=== PATIENT | female | born 1985 | race Caucasian/White ===

== ENCOUNTER 2020-02-22 15:02 | Inpatient (IN) | payer MEDICAID, SELFPAY ==
[2020-02-22 16:45] VITALS: BP 119/70; PULSE 97; RESP 16; TEMP 36.8; O2SAT 100; BMI 39.0; BMI 39.1
[2020-02-22] MEDS: Acetaminophen 325 MG Tablet 650 MG PO ×2 (18:57→22:34)
[2020-02-22 18:59] VITALS: BP 122/68; PULSE 89; RESP 17; TEMP 36.8; O2SAT 100
[2020-02-22] MEDS: Glycerin/Hypromellose/PEG400 15 ml Bottle 1 DRP EACH EYE ×2 (19:51→22:34)
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
[2020-02-22] MEDS: BACITRACIN 15 GM Tube 1 APPLIC TOPICAL (22:44)
[2020-02-23] MEDS: Glycerin/Hypromellose/PEG400 15 ml Bottle 1 DRP EACH EYE ×3 (04:52→17:21)
[2020-02-23] MEDS: Enoxaparin 40 MG/0.4 ML Syringe SC (04:52)
[2020-02-23 07:30] VITALS: BP 124/68; PULSE 88; RESP 18; TEMP 36.7; O2SAT 97
[2020-02-23 07:49] VITALS: O2SAT 98
[2020-02-23] MEDS: Acetaminophen 325 MG Tablet 650 MG PO ×4 (07:57→21:18)
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
--- NOTE | 2020-02-23 14:11 | REHABEVAL_ITS ---
Admission Information Primary Diagnosis:: Left lateral condyle femur fracture, right scapular fracture. Status Changes from Prescreening?: No changes Identified Actual Problem List:: Pain, ALteration in Cmfrt, Mobility Impaired, Self Care Deficit Potential Problem List:: DVT, Bleeding, Infection, UTI, Falls, Skin Integrity, Depression Risk of Complications DVT: LMWH, BETSY Hose, Sequential Compression Device Bleeding: Monitor Lab Values, Nursing to Teach Precautions for anti-coagulation therapy., Wound, if applicable, to be assessed every shift., Stroke patients assessed for lethargy or change in status. Infection: Clinical Staff to Monitor for S/S of infection:, S/S of infection include fever, redness, warmth, etc. Urinary Tract Infection: Monitor for frequency, burning, discomfort, or incontinence., Nursing will obtain urine sample for urinalysis and C&S when ordered. Aspiration: Clinical staff will monitor for coughing, drooling, congestion., Speech will evaluate swallowing and dsyphasia., Nursing will monitor patient swallowing during meals. Falls: Patient will be evaluated for Fall Precautions, Patient will be placed on Fall Precautions as indicated per protocol. Skin Breakdown: Nursing will assess skin daily using assessment tool., Nursing will place on Skin Breakdown Precautions as indicated. Pain: Clinical staff will assess patient's pain level per protocol., Medications will be given, if needed, and the pain level reassessed., Other methods: Massage, distraction, decrease stimulus, etc. used PRN. Plan of Care Patient requires physician specializing in physical medicine and rehab oversight to provide close medical supervision of rehab issues including: Pain Management, Sleep Problems, Bowel and Bladder, Medical and co-morbidity Management, DVT prophylaxis, Rehabilitation Leadership, Coordination of treatment team Patient needs Physical Therapy: For a minimum of 1 hour, At least 5 out of 7 days Patient needs Physical Therapy to improve:: Mobility, Mobility, Mobility, Strengthening, Transfers, Stretching, ROM, Endurance, Stairs, Gait, Balance Patient needs Occupational Therapy: For a minimum of 1 hour, At least 5 out of 7 days Patient needs Occupational Therapy to improve ADL's incl.: Eating, Grooming, Bathing, Dressing, Toileting, Toilet transfers, Community Reintegration, Higher functioning activities, Household tasks, Adaptive Equipment, Splinting, Other activities as determined Patient requires speech therapy: For a minimum of 1 hour, At least 5 out of 7 days Patient requires speech therapy for: Swallowing, Cognition, Language Skills, Compensatory Strategies Patient requires 24/ Rehabilitation Nursing for: Pain Issues, Identifying and preventing risk factors, Monitoring and reporting current medical conditions, Assisting with ambulation, transfer, and all ADL's, Teaching patients about disease process and medications, Family teaching, Providing safe environment, Bowel and Bladder Issues, Skin integrity, Medication Management Patient needs Oracle Data Warehouse Developer/ Case Management for: Discharge Planning, Arranging Home Equipment or Services, Family Interventions Patient needs Dietary and Nutrition Services for: Adequate Nutrition, Nut ritional Supplements, Nutritional Education Goals Patient will remain: free from falls, or injury at time of discharge. Patient will perform bed mobility at: MOD I level of assist. Patient will complete transfers from bed to chair at: Standby Assist. Patient will propel wheelchair: with standby assist, - - 300 feet. Patient will complete upper body dressing at: MOD I level of assist. Patient will complete lower body dressing at: MOD I level of assist. Patient will complete toileting at: MOD I level of assist. Patient will perform bathing at: - - Supervision. Patient will complete grooming at: MOD I level of assist. Patient will complete home management skills at: MOD I level of assist. Patient will have pain level of: of 3 or less Patient's skin will: remain intact, free from infection. Patient will receive: adequate nutrition. Discharge Planning Pt Prognosis for Sig. Practical Improv. w/in Reasonable Time: Good Anticipated D/C Destination: Home w/ family or friends Was Preadmission Assessment Accurate?: Yes
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
[2020-02-23 19:23] VITALS: BP 142/78; PULSE 94; RESP 18; TEMP 36.6; O2SAT 100
[2020-02-24] MEDS: Enoxaparin 40 MG/0.4 ML Syringe SC (06:09)
[2020-02-24 07:29] VITALS: O2SAT 96
[2020-02-24] MEDS: Acetaminophen 325 MG Tablet 650 MG PO ×4 (07:59→21:09)
[2020-02-24 08:05] VITALS: BP 121/76; PULSE 80; RESP 18; TEMP 36.8; O2SAT 100
[2020-02-24] MEDS: Glycerin/Hypromellose/PEG400 15 ml Bottle 1 DRP EACH EYE (17:54)
[2020-02-24 19:08] VITALS: BP 130/87; PULSE 95; RESP 16; TEMP 36.7; O2SAT 99
[2020-02-24 22:00] VITALS: RESP 16
[2020-02-25] MEDS: Enoxaparin 40 MG/0.4 ML Syringe SC (06:39)
[2020-02-25] MEDS: Glycerin/Hypromellose/PEG400 15 ml Bottle 1 DRP EACH EYE (06:39)
[2020-02-25 07:30] VITALS: BP 125/70; PULSE 90; RESP 16; TEMP 36.7; O2SAT 98
[2020-02-25] MEDS: Acetaminophen 325 MG Tablet 650 MG PO ×4 (08:07→21:40)
[2020-02-25 09:39] VITALS: O2SAT 98
[2020-02-25 19:35] VITALS: BP 127/70; PULSE 86; RESP 16; TEMP 36.3; O2SAT 100
[2020-02-25 22:00] VITALS: PULSE 78; RESP 16
[2020-02-26] MEDS: Enoxaparin 40 MG/0.4 ML Syringe SC (05:18)
[2020-02-26] MEDS: Glycerin/Hypromellose/PEG400 15 ml Bottle 1 DRP EACH EYE (05:29)
[2020-02-26 08:44] VITALS: BP 124/68; PULSE 86; RESP 16; TEMP 36.6; O2SAT 97
[2020-02-26] MEDS: Acetaminophen 325 MG Tablet 650 MG PO ×4 (11:05→21:49)
[2020-02-26 19:47] VITALS: BP 124/69; PULSE 85; RESP 17; TEMP 36.4; O2SAT 97
[2020-02-26 19:53] VITALS: PULSE 95; RESP 16
[2020-02-27] MEDS: Enoxaparin 40 MG/0.4 ML Syringe SC (05:55)
[2020-02-27] MEDS: Glycerin/Hypromellose/PEG400 15 ml Bottle 1 DRP EACH EYE (05:55)
[2020-02-27 10:00] VITALS: BP 115/69; PULSE 79; RESP 16; TEMP 36.7; O2SAT 95
[2020-02-27] MEDS: Acetaminophen 325 MG Tablet 650 MG PO ×4 (10:56→22:22)
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
--- NOTE | 2020-02-27 13:09 | CASEMGMT ---
Social Work IDT met with patient and for Team meeting. Discussed patient's progress in therapy. Pt is SBA - CGA for transfers, can self-propel w/c at SBA off unit, is Zuleyma for grooming/UE dressing, min-mod for LE dressing due to balance, is using adaptive equipment, min for shower tx, max for bathing. Pt stood for 6 mins and 40 seconds. and family/friends can assist pt at home. Explained [facility] insurance with [employer] 02/26 and continued stay is not guaranteed. Pt requesting to DC home 02/27. IDT agreeable. Pt get HEP for therapy and requesting DME. Referred to [employer] for hemiwalker, w/c with elevated leg rests and right brake extension, and 3-in-1 commode. Referred to [facility] for extended tub bench. Plan: DC home with and support 02/27 with DME, no therapy. Sharonda Carbajal ,VISUAL AID EXPERT TAIL EDGER
[2020-02-27 15:49] VITALS: O2SAT 95
[2020-02-27 19:00] VITALS: BP 124/71; PULSE 84; RESP 16; TEMP 36.6; O2SAT 99
[2020-02-28 05:54] LABS: Hematocrit 32.8 % (37-47); Hemoglobin 9.7 g/dL (12.0-15.0); Mean Corp Hgb Conc 29.6 g/dL (32-36); Mean Corpuscular Hgb 27.2 pg (27.0-32.0); Mean Corpuscular Volume 92.1 fL (81-99); Mean Platelet Vol. 8.5 fl (6.2-12.0); Platelet Count 628 K/mm3 (150-450); RBC Distribution Width CV 14.4 % (11.6-14.6); RBC Distribution Width SD 47.9 fl (35.1-43.9); Red Blood Count 3.56 M/mm3 (4.2-5.4); White Blood Count 10.3 K/mm3 (4.4-11.0)
[2020-02-28 06:32] LABS: ALB/GLOB Ratio 0.8 RATIO (0.9-2.4); AST(SGOT) 18 U/L (15-37); Alanine Aminotransfer ALT/SGPT 29 U/L (13-56); Albumin, Serum 2.7 g/dL (3.2-5.0); Alkaline Phosphatase 186 U/L (45-117); Anion Gap 6 (5-15); BUN 9 mg/dL (7-18); BUN/Creat Ratio 15.4 RATIO (10-20); Calcium,Total 8.7 mg/dL (8.5-10.1); Chloride 108 mmol/L (98-107); Creatinine, Serum 0.58 mg/dL (0.55-1.02); EST Glomerular Filtration Rate 124 mL/min (>60); Est Glom Filt Rate - Afr Amer 151 mL/min (>60); Estimated Creatinine Clearance 97.24 ml/min; Globulin 3.3 g/dL (2.2-4.2); Glucose 92 mg/dL (74-106); Magnesium 2.3 mg/dL (1.6-2.6); Potassium 3.9 mmol/L (3.5-5.1); Sodium Level 141 mmol/L (136-145)
[2020-02-28] MEDS: Acetaminophen 325 MG Tablet 650 MG PO (08:35)
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
[2020-02-28 09:34] VITALS: BP 114/68; PULSE 79; RESP 18; TEMP 37; O2SAT 97
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
== END 2020-02-28 11:32 | disposition home or self-care (01) | DRG 862 ==
PROVIDERS: Internal Medicine; Admitting Provider Family Medicine Geriatric Medicine; Referring Provider Family Medicine Geriatric Medicine; Visit Provider Family Medicine Geriatric Medicine
DX: S42.101D Fracture of unspecified part of scapula, right shoulder, subsequent encounter for fracture with routine healing (principal); S32.009D Unspecified fracture of unspecified lumbar vertebra, subsequent encounter for fracture with routine healing; S22.31XD Fracture of one rib, right side, subsequent encounter for fracture with routine healing; S12.600D Unspecified displaced fracture of seventh cervical vertebra, subsequent encounter for fracture with routine healing; S22.019D Unspecified fracture of first thoracic vertebra, subsequent encounter for fracture with routine healing; S22.029D Unspecified fracture of second thoracic vertebra, subsequent encounter for fracture with routine healing; S22.039D Unspecified fracture of third thoracic vertebra, subsequent encounter for fracture with routine healing; S22.049D Unspecified fracture of fourth thoracic vertebra, subsequent encounter for fracture with routine healing; S22.059D Unspecified fracture of T5-T6 vertebra, subsequent encounter for fracture with routine healing; S22.069D Unspecified fracture of T7-T8 vertebra, subsequent encounter for fracture with routine healing; S72.422D Displaced fracture of lateral condyle of left femur, subsequent encounter for closed fracture with routine healing; V54 Occupant of pick-up truck or van injured in collision with heavy transport vehicle or bus; E66.9 Obesity, unspecified; Z68.39 Body mass index [BMI] 39.0-39.9, adult; D62 Acute posthemorrhagic anemia; S01.81XD Laceration without foreign body of other part of head, subsequent encounter
CPT/HCPCS: 80053; 83735; 85027; 97032; 97110; 97162; 97166; 97530; 97535; 97537; 97542